=== PATIENT | female | born 1985 | race African-American/Black ===

== ENCOUNTER 2016-10-24 08:50 | Day surgery (SDC) | payer OTHER ==
[~2016-10-24 08:50] MED LIST: COMPETE1 EACH PO; CORTEF10 M1 PO; CORTEF5 M1 PO; CRANBERRY400 M2 PO; CYMBALTA60 M1 PO; FEOSOL325 M1 PO; FLECTOR1 EAC1 TD; GENGRAF100 MG PO; HEPARIN SO5000 UNIT1 SC; LASIX20 M1 PO; LASIX40 M1 PO; LOPID600 M1 PO; LOPRESSOR100 M1 PO; LYRICA100 MG/CAP PO; MAGNESIUM OXID400 M1 PO; MILK OF MAGNESIA PO; MIRALAX17 G2 PO; NAPROSYN500 M1 PO; NEURONTIN300 M1 PO; NORVASC10 M2 PO; NUCYNTA ER100 M1 PO; NYSTOP60 GM EXT; PRILOSEC OTC20 M1 PO; SENNA8.6 M2 PO; SEROQUEL25 M2 PO; VITAMIN C500 M3 PO; WELLBUTRIN XL150 M1 PO; [UNRECOGNIZED DRUG - OTHER] TOP
== END 2016-10-24 14:20 ==
LOC: SRG 08:50 → SHSC 08:56 → ORE 11:12 → PACU 12:00 → SHSC 12:25
PROC: 0CDWXZ1 Extraction of Upper Tooth, Multiple, External Approach (ICD-10-PCS; principal; 2016-10-24)
DX: K08.89 Other specified disorders of teeth and supporting structures (principal); I10 Essential (primary) hypertension; Z86.73 Personal history of transient ischemic attack (TIA), and cerebral infarction without residual deficits; F41.9 Anxiety disorder, unspecified; F32.9 Major depressive disorder, single episode, unspecified; Z88.0 Allergy status to penicillin; Z88.1 Allergy status to other antibiotic agents; Z88.8 Allergy status to other drugs, medicaments and biological substances; Z79.899 Other long term (current) drug therapy; Z87.891 Personal history of nicotine dependence
CPT/HCPCS: J1720